=== PATIENT | male | born 1955 | race Caucasian/White ===

== ENCOUNTER 2019-05-28 11:17 | Emergency (ER) | payer MEDICARE ==
[2019-05-28 11:39] VITALS: BP 161/96
--- NOTE | 2019-05-28 12:09 | UC ---
Minor Trauma HPI - HPI Summary HPI Summary: patient slipped and fell on wet tile in the bathroom this morning---did not hit head landed on back ripped off left great toe nail, has lumbar sacral bone pain- -patient reports living alone with a dog- - History of Current Complaint Chief Complaint: MEENAkin Stated Complaint: FELL IN SHOWER, RIPPED TOENAIL OFF Time Seen by Provider: 05/28/19 11:58 Hx Obtained From: Patient Onset/Duration: Sudden Onset, Still Present - pain still present from fall this morning Onset Of Pain: Post Accident Pain Intensity: 5 Pain Scale Used: 0-10 Numeric Mechanism Of Injury: Fall From A Standing Position Aggravating Factor(s): Movement Alleviating Factor(s): Nothing Associated Signs And Symptoms: Positive: Other: - bleeding left great toe nail - Allergies/Home Medications Allergies/Adverse Reactions: Allergies Allergy/AdvReac Type Severity Reaction Status Date / Time No Known Allergies Allergy Verified 05/28/19 11:39 Home Medications: Home Medications Cbd Oil 1,500 mg PO BID 05/28/19 [History Confirmed 05/28/19] Formula 303 1 tab PO DAILY 05/28/19 [History Confirmed 05/28/19] Sertraline HCl [Zoloft] 100 mg PO 05/28/19 [History] PMH/Surg Hx/FS Hx/Imm Hx Previously Healthy: No - arthritis Psychological History: Depression - Surgical History Surgical History: Yes Surgery Procedure, Year, and Place: hernia repairs - Family History Known Family History: Positive: None - Social History Occupation: Disabled Lives: Alone Alcohol Use: None Substance Use Type: None Smoking Status (MU): Former Smoker When Did the Patient Quit Smoking/Using Tobacco: 20 yrs since cigs and 2 yrs since smokeless Review of Systems All Other Systems Reviewed And Are Negative: Yes Constitutional: Positive: Negative Skin: Positive: Other - bleeding left great nail bed Eyes: Positive: Negative ENT: Positive: Negative Respiratory: Positive: Negative Cardiovascular: Positive: Negative Gastrointestinal: Positive: Negative Genitourinary: Positive: Negative Motor: Positive: Other - chronic pain and limited rom Neurovascular: Positive: Negative Musculoskeletal: Positive: Arthralgia - lumbar sacral spine Neurological: Positive: Negative Psychological: Positive: Negative Is Patient Immunocompromised?: No Physical Exam Triage Information Reviewed: Yes Appearance: Well-Appearing, No Pain Distress, Well-Nourished Vital Signs: Initial Vital Signs Temp 99.5 F 05/28/19 11:30 Pulse 108 05/28/19 11:30 Resp 20 05/28/19 11:30 BP 161/96 05/28/19 11:30 Pulse Ox 98 05/28/19 11:30 Vital Signs Reviewed: Yes Eye Exam: Normal Eyes: Positive: Conjunctiva Clear ENT Exam: Normal ENT: Positive: Normal ENT inspection, Hearing grossly normal. Negative: Trismus , Muffled voice, Hoarse voice Dental Exam: Normal Neck exam: Normal Neck: Positive: Supple, Nontender, No Lymphadenopathy Respiratory Exam: Normal Respiratory: Positive: Chest non-tender, Lungs clear, Normal breath sounds, No respiratory distress, No accessory muscle use Cardiovascular Exam: Normal Cardiovascular: Positive: RRR, No Murmur, Pulses Normal, Brisk Capillary Refill Musculoskeletal Exam: Normal Musculoskeletal: Positive: Strength Intact, ROM Intact, No Edema Neurological Exam: Normal Neurological: Positive: Alert, Muscle Tone Normal Psychological Exam: Normal Skin: Positive: Other - minor oozing left great nail bed Diagnostics - Radiology No standard instances Radiology Interpretation Completed By: Radiologist - no acute lumbar changes, gas and stool in large intestine Minor Trauma Course/Dx - Course Course Of Treatment: patient prefers aleeve for pain, gentle rom for back---dressing on great toe wash and change qd and prn---follow with Dr. Ashley in 1 week - Differential Dx/Diagnosis Provider Diagnosis: Nail avulsion of toe, Back pain due to injury, Hypertension, Deficient knowledge of fall prevention Discharge ED - Sign-Out/Discharge Documenting (check all that apply): Patient Departure All imaging exams completed and their final reports reviewed: No Studies - Discharge Plan Condition: Stable Disposition: HOME Patient Education Materials: Constipation (DC), Fall Prevention for Older Adults (ED), Acute Low Back Pain (ED), Hypertension (ED), Nail Avulsion (ED) Referrals: Usman Estrada MD [Primary Care Provider] - 1 Week - Billing Disposition and Condition Condition: STABLE Disposition: Home - Attestation Statements Provider Attestation: I was available for consult. This patient was seen by the BRIAN. The patient was not presented to, seen by, or examined by me. -Orestes
== END 2019-05-28 14:01 | disposition home or self-care (01) ==
LOC: UCEAST 11:17
DX: S91.202A Unspecified open wound of left great toe with damage to nail, initial encounter (principal); F32.9 Major depressive disorder, single episode, unspecified; M54.9 Dorsalgia, unspecified; I10 Essential (primary) hypertension; Z79.899 Other long term (current) drug therapy; Z87.891 Personal history of nicotine dependence; W01.0XXA Fall on same level from slipping, tripping and stumbling without subsequent striking against object, initial encounter; Y92.002 Bathroom of unspecified non-institutional (private) residence as the place of occurrence of the external cause
CPT/HCPCS: 72110; 99212; G0463

== ENCOUNTER 2019-06-20 07:41 | Emergency (ER) | payer MEDICARE ==
--- NOTE | 2019-06-20 07:49 | ED ---
Complex/Multi-Sys Presentation - HPI Summary HPI Summary: Patient is a 63 y/o M presenting to the ED for a chief complaint of left hip pain after a fall at 03:00 on 06/20/19. Patient describes that he was reaching over the couch in his house when he tripped and fell from a standing position. Per EMS, patient was lying on the floor for 4 hours before the patient was able to call emergency services. Patient previously complained of left hip pain, and now also complains of left knee pain and lower back pain. He admits back pain from a previous fall one month ago in his bathroom, but reports the back pain on 06/20/19 has worsened from his baseline. He rates his back and knee pain as a 6/10 in severity. He had a scan of his back, but does not yet know the results. Patient also states he has had bilateral LE edema and ecchymosis of the lower back from a previous fall. He also notes urinary burning and difficulty voiding after a ureterscopy. Patient denies a loss of consciousness after the fall. He uses a cane to ambulate at home. PMHx is not significant for DM, HTN, or hypercholesterolemia. Patient is a former smoker and denies alcohol or drug use. Patient denies taking blood thinners, but he does take Sertraline and CBD oil. Allergies noted. Medications reviewed. Patient lives alone. - History Of Current Complaint Hx Obtained From: Patient, EMS Onset/Duration: Sudden Onset, Lasting Hours - 4 hours ago, Still Present Timing: Constant Severity Currently: Moderate Severity Initially: Moderate Location: Pain At: - Left hip, left knee, and lower back Associated Signs And Symptoms: Positive: Edema - Bilateral LE, Back Pain - Lower , Recent Trauma - Fall. Negative: Anticoagulation Therapy - Allergies/Home Medications Allergies/Adverse Reactions: Allergies Allergy/AdvReac Type Severity Reaction Status Date / Time No Known Allergies Allergy Verified 05/28/19 11:39 Home Medications: Home Medications Cannabidiol (CBD) Extract (NF) [Epidiolex (NF)] 1,500 mg PO BID 06/20/19 [ History Confirmed 06/20/19] Green Pain Salve 1 applic TOPICAL .1-2 TIMES DAILY PRN 06/20/19 [History Confirmed 06/20/19] Naproxen Sodium [Aleve] 220 mg PO DAILY PRN 06/20/19 [History Confirmed 06/20/19 ] PMH/Surg Hx/FS Hx/Imm Hx Previously Healthy: Yes Endocrine/Hematology History: Denies: Hx Diabetes Cardiovascular History: Denies: Hx Hypercholesterolemia, Hx Hypertension GI History: Reports: Hx Ulcer - duodenal Sensory History: Denies: Hx Legally Blind, Hx Deafness Opthamlomology History: Denies: Hx Legally Blind EENT History: Denies: Hx Deafness - Surgical History Surgical History: Yes Surgery Procedure, Year, and Place: hernia repairs Infectious Disease History: No Infectious Disease History: Denies: Hx Clostridium Difficile, Hx Hepatitis, Hx Human Immunodeficiency Virus (HIV), Hx of Known/Suspected MRSA, Hx Shingles, Hx Tuberculosis, Hx Known/ Suspected VRE, Hx Known/Suspected VRSA, History Other Infectious Disease - Family History Known Family History: Negative: Hypertension - Social History Occupation: Retired Lives: Alone Alcohol Use: None Hx Substance Use: No Substance Use Type: Reports: None Hx Tobacco Use: Yes Smoking Status (MU): Former Smoker Review of Systems Positive: burning - Urinary, other - Positive difficulty voiding Positive: Arthralgia - Left hip and left knee, Myalgia - Lower back, Edema - Bilateral LE Positive: Bruising - Lower back Negative: Syncope - LOC All Other Systems Reviewed And Are Negative: Yes Physical Exam - Summary Physical Exam Summary: Constitutional: Well-developed, Well-nourished, Alert. (-) Distressed Skin: Warm, Dry HENT: Normocephalic; Atraumatic Eyes: Conjunctiva normal Neck: Musculoskeletal ROM normal neck. (-) JVD, (-) Stridor, (-) Tracheal deviation Cardio: Rhythm regular, rate normal, Heart sounds normal; Intact distal pulses; Radial pulses are 2+ and symmetric. (-) Murmur Pulmonary/Chest wall: Effort normal. (-) Respiratory distress, (-) Wheezes, (-) Rales Abd: Soft, (-) tenderness, (-) Distension, (-) Guarding, (-) Rebound Musculoskeletal: bilateral LE pitting edema, worse on left than right, old ecchymosis to the left lower back, no bony tenderness, full ROM in the lower extremities. Lymph: (-) Cervical adenopathy Neuro: Alert, Oriented x3 Psych: Mood and affect Normal Triage Information Reviewed: Yes Vital Signs Reviewed: Yes Procedures - Sedation Patient Received Moderate/Deep Sedation with Procedure: No Diagnostics - Laboratory Result Diagrams: 06/20/19 08:02 06/20/19 08:02 Lab Statement: Any lab studies that have been ordered have been reviewed, and results considered in the medical decision making process. - Ultrasound Venous Doppler Study Ultrasound Interpretation Completed By: Radiologist Summary of Ultrasound Findings: Venous Doppler Study IMPRESSION: NO EVIDENCE FOR DEEP VENOUS THROMBOSIS. Reviewed by Dr. Walter. Re-Evaluation - Re-Evaluation First Eval Re-Evaluation Time: 10:00 Change: Unchanged Comment: At 10:00, patient is ambulating with a walker and has a shuffling gait. Second Eval Re-Evaluation Time: 10:18 Change: Unchanged Comment: At 10:18, patient is comfortable going home. He will have his ex- and son help him get a walker today. Complex Multi-Symp Course/Dx Course Of Treatment: Patient is here after mechanical fall. Patient has no traumatic injuries. Patient's presentation is consistent with undiagnosed Parkinson's disease. Patient had blood performed which is grossly unremarkable. Neurology was called and will follow-up with him in clinic [facility]. Patient's friend picked him up to take him to get a walker for safe ambulatory discharge - Diagnoses Provider Diagnoses: Shuffling gait, Peripheral edema, Fall Discharge ED - Sign-Out/Discharge Documenting (check all that apply): Patient Departure - Discharge - Discharge Plan Condition: Stable Disposition: HOME Patient Education Materials: Edema (ED) Referrals: Usman Estrada MD [Primary Care Provider] - Zachary Jacobo MD [Medical Doctor] - Additional Instructions: Buy a walker when you get home. Dr. Jacobo is expecting your call for an urgent appointment. PLEASE RETURN TO EMERGENCY DEPARTMENT FOR ANY RECURRENT FALLS, IF YOU DO NOT FEEL SAFE AT HOME, AND NEW OR WORSENING SYMPTOMS. Please follow up with your primary care physician. Please make all follow-ups in 1-3 days unless I advise you otherwise. - Billing Disposition and Condition Condition: STABLE Disposition: Home - Attestation Statements Document Initiated by Scribe: Yes Documenting Scribe: Rhonda Rey Provider For Whom Roberibe is Documenting (Include Credential): Ted Walter MD Scribe Attestation: I, Rhonda Rey, scribed for Ted Walter MD on 06/20/19 at 1859. Scribe Documentation Reviewed: Yes Provider Attestation: The documentation as recorded by the scribe, Rhonda Rey accurately reflects the service I personally performed and the decisions made by me, Ted Walter MD Status of Scribe Document: Viewed
[2019-06-20 08:21] LABS: ABS Basophils 0.1 10^3/ul (0-0.2); ABS Eosinophils 0.1 10^3/ul (0-0.6); ABS Lymphocytes 1.4 10^3/ul (1.0-4.8); ABS Monocytes 0.5 10^3/ul (0-0.8); ABS Neutrophils 3.5 10^3/ul (1.5-7.7); Eosinophil % 1.1 %; Hematocrit 42 % (42-52); Hemoglobin 14.3 g/dL (14.0-18.0); Lymphocyte % 24.7 %; Mean Corpuscular HGB Conc 34 g/dL (31-36); Mean Corpuscular Hemoglobin 29 pg (27-31); Mean Corpuscular Volume 84 fL (80-94); Nucleated Red Blood Cells % 0.1; Platelet Count 158 10^3/uL (150-450); Red Blood Count 4.97 10^6 /uL (4.18-5.48); Red Cell Distribution Width 15 % (10-15); White Blood Count 5.5 10^3/uL (3.5-10.8)
[2019-06-20 08:31] LABS: Albumin 3.9 g/dL (3.2-5.2); Albumin/Globulin Ratio 1.3 (1-3); BUN/Creatinine Ratio 31.8 (8-20); EGFR African American 83.9 (>60); EGFR Non-African American 69.4 (>60); Globulin 3.1 g/dL (2-4); Potassium 3.7 mmol/L (3.5-5.0); Total Bilirubin 1.1 mg/dL (0.2-1.0)
[2019-06-20 08:33] LABS: Troponin I 0.01 ng/mL (<0.03)
[2019-06-20 08:55] LABS: Urine Appearance Cloudy; Urine Bilirubin Negative (Negative); Urine Blood 1+ (Negative); Urine Color Yellow; Urine Glucose Negative (Negative); Urine Ketones 1+ (Negative); Urine Nitrite Negative (Negative); Urine Protein Negative (Negative); Urine Urobilinogen Negative (Negative)
[2019-06-20 09:08] LABS: Urine Bacteria Absent (Absent); Urine Red Blood Cell 2+(6-10/hpf) (Absent); Urine White Blood Cell Trace(0-5/hpf) (Absent)
--- OUTSIDE RECORDS SUMMARY | 2019-06-20 10:07 | XMS REPORT | Summary of Care ---
:1955 Author Organization [facility] Address [address] [facility] [place]te [address] Care Team Providers Name Role Phone Usman Estrada Primary Care Provider Kristyn Carrington Corn Popper Unavailable Reason for Referral Refer to Department Only (Routine) Status Reason Specialty Diagnoses / Referred By Referred To Procedures Contact Contact Pending Review Second Opinion NEUROLOGY Diagnoses Activity motor retarded Tremor of both hands Trell Tolbert PA [address] [place] [address] Scheduling Instructions Referral with Dr. Jacobo MRI/CAT/PET Scan (Routine) Status Reason Specialty Diagnoses / Referred By Referred To Procedures Contact Contact Pending Review Diagnoses Activity motor retarded Tremor of both hands Trell Tolbert Procedures CT HEAD WITHOUT IV CONTRAST SURAJ Vega [address] [place] [address] Reason for Visit Reason Comments ER F/U slipped and fell in bathroom on 05/28 lower back pain has increased since fall, L foot big toe nail came off during fall needs to be checked for healing Encounter Details Date Type Department Care Team Description 06/03/2019 Office Visit [facility] Trell Tolbert, Nail avulsion of toe, initial encounter (Primary Dx); Florencia RUELAS Chronic bilateral low back pain without sciatica; [address] [facility] [address] [facility] Activity motor retarded; [place] [address] [place] [address] Tremor of both hands [phone] Allergies Active Allergy Reactions Severity Noted Date Comments Environmental Respiratory Reaction 10/22/2016 documented as of this encounter (statuses as of 06/03/2019) Medications Medication Sig Dispensed Refills Start Date End Date Status sertraline TAKE 1 TABLET BY 90 Tab 5 11/24/2018 Active (ZOLOFT) 100 MG MOUTH EVERY DAY Oral Tab Umey-Xprilxt-Vwep 0.5 Drops TWICE 0 Active yl Kal-Camph (CBD DAILY. KINGS EX) sublingual Naproxen Sodium Take 200 mg by 0 Active (ALEVE PO) mouth NEEDED. Aspirin-Acetamino Take by mouth. 0 06/03/2019 Discontinued phen-Caffeine (EXCEDRIN PO) documented as of this encounter (statuses as of 06/03/2019) Active Problems Problem Noted Date Prostate cancer 01/05/2019 Overview: Watch and wait [facility] last psa 8 Biopsy positive winter 2017 Essential hypertension 10/05/2017 History of tobacco use 09/11/2016 Overview: Quit 1990s Family history of abdominal aortic aneurysm 09/11/2016 Overview: Dad GERD (gastroesophageal reflux disease) 02/14/2015 BMI 33.0-33.9,adult 03/03/2012 Overview: This patient's BMI has been calculated and is above average, and BMI management plan is completed. Depression, major, in remission Overview: hypervigilance and depressed mood Seasonal allergies DDD (degenerative disc disease) documented as of this encounter (statuses as of 06/03/2019) Immunizations Name Administration Dates Next Due Hepatitis B Vaccine Adult 12/12/2010 Influenza (IM) Preservative Free 05/17/2018 Influenza (IM) W/Pres 02/26/2017, 04/17/2016 Influenza Vaccine 65 Yrs + 04/12/2019 Pneumococcal Conjugate(13 Valent) 04/12/2019 TDAP Vaccine 12/01/2011 documented as of this encounter Social History Tobacco Use Types Packs/Day Years Used Date Former Smoker Cigarettes 2.5 20 Quit: 09/30/1979 Smokeless Tobacco: Former User Quit: 09/29/2013 Alcohol Use Drinks/Week oz/Week Comments No Social Isolation Answer Date Recorded In a typical week, how many times do you More than three times a week 2018 talk on the phone with family, friends, or neighbors? How often do you get together with friends Once a week 01/05/2019 or relatives? How often do you attend confucianism or More than 4 times per year 01/05/2019 sabianism services? Do you belong to any clubs or Yes 01/05/2019 organizations such as confucianism groups, unions, fraternal or athletic groups, or school groups? How often do you attend meetings of the More than 4 times per year 01/05/2019 clubs or organizations you belong to? Are you now , , , 01/05/2019 , never or living with a partner? Physical Activity Answer Date Recorded On average, how many days per week do you engage in moderate to 2 days 2018 strenuous exercise (like walking fast, running, jogging, dancing, swimming, biking, or other activities that cause a light or heavy sweat)? On average, how many minutes do you engage in exercise at this 30 min 2018 level? Stress Answer Date Recorded Do you feel stress - tense, restless, nervous, or Only a little 01/05/2019 anxious, or unable to sleep at night because your mind is troubled all the time - these days? Financial Resource Strain Answer Date Recorded How hard is it for you to pay for the very basics like Not hard at all 2018 food, housing, medical care, and heating? Intimate Partner Violence Answer Date Recorded Within the last year, have you been afraid of your partner or No 01/05/2019 ex-partner? Within the last year, have you been humiliated or emotionally No 01/05/2019 abused in other ways by your partner or ex-partner? Within the last year, have you been kicked, hit, slapped, or No 01/05/2019 otherwise physically hurt by your partner or ex-partner? Within the last year, have you been raped or forced to have any No 01/05/2019 kind of sexual activity by your partner or ex-partner? Food Insecurity Answer Date Recorded Within the past 12 months, you worried that your food would Never true 2018 run out before you got money to buy more. Within the past 12 months, the food you bought just didn't Never true 2018 last and you didn't have money to get more. Transportation Needs Answer Date Recorded In the past 12 months, has lack of transportation kept you from No 01/05/2019 medical appointments or from getting medications? In the past 12 months, has lack of transportation kept you from No 01/05/2019 meetings, work, or getting things needed for daily living? Sex Assigned at Date Recorded Not on file Job Start Date Occupation Industry Not on file Not on file Not on file Travel History Travel Start Travel End No recent travel history available. documented as of this encounter Last Filed Vital Signs Vital Sign Reading Time Taken Comments Blood Pressure 156/84 06/03/2019 10:06 AM EST Pulse 67 06/03/2019 10:06 AM EST Temperature 36.4 06/03/2019 10:06 AM EST C (97.5 F) Respiratory Rate - - Oxygen Saturation 99% 06/03/2019 10:06 AM EST Inhaled Oxygen Concentration - - Weight 96.6 kg (213 lb) 06/03/2019 10:06 AM EST Height 170.2 cm (5' 7") 06/03/2019 10:06 AM EST Body Mass Index 33.36 06/03/2019 10:06 AM EST documented in this encounter Progress Notes Trell Tolbert, SURAJ - 06/03/2019 10:00 AM EST PATIENT: Juvencio Lee : 1955 DATE OF SERVICE: 06/03/2019 Subjective SUBJECTIVE: Juvencio Lee is a 63-y.o. male who presents to monitor his left great toe after losing the nail in a fall in the shower. Seen in urgent care. SUBJECTIVE: Juvencio Lee is a 63-y.o. male who sustained a left toe injury after falling in the shower, losing a toenail on his great toe 1 week(s) ago. Immediate symptoms: immediate pain. Symptoms have been gradually improving since that time. Prior history of related problems: no prior problems with this area in the past, previous low back problems that have worsened since the fall.. [facility] took an X-Ray of his back on 05/28/2019 without any acute findings. He was advised to take Aleve for the pain and to see us here for follow up. Today, I noticed that the patient had severe motor and speech retardation. When questioning the patient whether this was his normal, he stated that this slowness has existed for the last year and occurred suddenly upon waking up, but has not discussed this with any providers. His neighbors suggested that he may have had a stroke or TIA based on his behavior, but he did not feel it was important to beevaluated at that time. He complains of slowed thought content, left sided weakness, slow speech without difficulty pronouncing things. It has severely impacted his activities of daily living such as putting on a jacket, getting into cars, putting on shoes, sitting in standing, making phone calls, andconversing. He denies recent injury, loss of consciousness, changes in vision or hearing, slurred speech. Past Medical History: Diagnosis Date Carpal tunnel syndrome BILAT DDD (degenerative disc disease) Mood disorder (HCC) hypervigilance and depressed mood Seasonal allergies Skin abnormalities Skin cancer Squamous cell carcinoma Family History Problem Relation Age of Onset Heart Mother Aneurysm Father Prostate Cancer Father Anesth Problems No family history Arthritis No family history Cancer No family history Clotting Disorder No family history Diabetes No family history Heart Disease No family history Hypertension No family history Kidney Disease No family history Thyroid Disease No family history Current Outpatient Medications Medication Sig Ieep-Djuaret-Zzsfli Kal-Camph (CBD KINGS EX) 0.5 Drops TWICE DAILY. sublingual Naproxen Sodium (ALEVE PO) Take 200 mg by mouth NEEDED. sertraline (ZOLOFT) 100 MG Oral Tab TAKE 1 TABLET BY MOUTH EVERY DAY No current facility-administered medications for this visit. Allergies Allergen Reactions Environmental Respiratory Reaction Social History Socioeconomic History Marital status: Spouse name: Not on file Number of children: Not on file Years of education: Not on file Highest education level: Not on file Occupational History Not on file Social Needs Financial resource strain: Not hard at all Food insecurity Worry: Never true Inability: Never true Transportation needs Medical: No Non-medical: No Tobacco Use Smoking status: Former Smoker Packs/day: 2.50 Years: 20.00 Pack years: 50.00 Types: Cigarettes Last attempt to quit: 09/30/1979 Years since quittin.7 Smokeless tobacco: Former User Quit date: 09/29/2013 Substance and Sexual Activity Alcohol use: No Drug use: No Sexual activity: Not on file Lifestyle Physical activity Days per week: 2 days Minutes per session: 30 min Stress: Only a little Relationships Social connections Talks on phone: More than three times a week Gets together: Once a week Attends sabianism service: More than 4 times per year Active member of club or organization: Yes Attends meetings of clubs or organizations: More than 4 times per year Relationship status: Intimate partner violence Fear of current or ex partner: No Emotionally abused: No Physically abused: No Forced sexual activity: No Other Topics Concern Not on file Social History Narrative lives alone; former smoker, still chews tobacco; x2; "I'm back to jainism again," but does not go to confucianism; disabled adult son; has 1 dog at home, but limited social support Review of Systems Constitutional: Negative for chills, fever and malaise/fatigue. HENT: Negative for hearing loss and tinnitus. Eyes: Negative for blurred vision and double vision. Respiratory: Negative for cough, sputum production and shortness of breath. Cardiovascular: Negative for chest pain, palpitations and leg swelling. Gastrointestinal: Negative for diarrhea, heartburn, nausea and vomiting. Musculoskeletal: Positive for back pain and falls. Skin: Negative for itching and rash. Neurological: Positive for tremors, speech change (Slowed speech) and weakness ( Left sided weakness). Negative for dizziness, sensory change, seizures, loss of consciousness and headaches. Psychiatric/Behavioral: Negative for hallucinations, memory loss, substance abuse and suicidal ideas. Objective OBJECTIVE: BP (!) 156/84 (BP Location: Right arm, Patient Position: Sitting) | Pulse 67 | Temp 97.5 F (36.4 C) (Tympanic) | Ht 5' 7" (1.702 m) | Wt 213 lb ( 96.6 kg) | SpO2 99% | BMI 33.36 kg/m Physical Exam Constitutional: General: He is not in acute distress. Comments: Patient won't make eye contact. He is alert and oriented but is slow-moving and speaking. HENT: Head: Normocephalic and atraumatic. Eyes: Pupils: Pupils are equal, round, and reactive to light. Cardiovascular: Rate and Rhythm: Normal rate and regular rhythm. Heart sounds: No murmur. No friction rub. No gallop. Pulmonary: Effort: No respiratory distress. Breath sounds: No wheezing, rhonchi or rales. Musculoskeletal: General: No swelling or deformity. Right lower leg: No edema. Left lower leg: No edema. Feet: Comments: Left big toenail fully avulsed. Without signs of erythema or infection; healing well. Skin: General: Skin is warm and dry. Neurological: Mental Status: He is oriented to person, place, and time. GCS: GCS eye subscore is 4. GCS verbal subscore is 5. GCS motor subscore is 6. Cranial Nerves: Cranial nerves are intact. No facial asymmetry. Sensory: Sensation is intact. Motor: Weakness (Full left sided weakness in all myotomes, 3/5 strength. 5/5 strength right myotomees throughout.) and tremor (Bilateral hand tremor noted.) present. No atrophy or seizure activity. Coordination: Coordination abnormal. Bbrgnf-Lptl-Rhxkpt Test abnormal and Heel to Prince Test abnormal. Gait: Gait abnormal. Deep Tendon Reflexes: Reflexes are normal and symmetric. Reflex Scores: Tricep reflexes are 2+ on the right side and 2+ on the left side. Bicep reflexes are 2+ on the right side and 2+ on the left side. Brachioradialis reflexes are 2+ on the right side and 2+ on the left side. Patellar reflexes are 2+ on the right side and 2+ on the left side. Achilles reflexes are 2+ on the right side. ASSESSMENT: ICD-9-CM ICD-10-CM 1. Nail avulsion of toe, initial encounter 893.0 S91.209A 2. Chronic bilateral low back pain without sciatica 724.2 M54.5 338.29 G89.29 3. Activity motor retarded 781.[address] HEAD WITHOUT IV CONTRAST REFER TO NEUROLOGY CANCELED: REFER TO NEUROLOGY 4. Tremor of both hands 781.[address] HEAD WITHOUT IV CONTRAST REFER TO NEUROLOGY CANCELED: REFER TO NEUROLOGY PLAN: 1. Nail is healing well. Continue to put neosporin on the toe and cover it with a bandaid. Wash yourfeet with soap and water, change socks daily. 2. His motor activity is highly concerning for a stroke that he may have had 1 year ago. I have ordered a head CT without contrast and referred him to neurology. - He also had high blood pressure today, and I would like him to follow up with this. I will call him to have him schedule a follow up appointment in a month. Author: SURAJ Aguilera 06/03/2019 11:01 documented in this encounter Plan of Treatment Name Type Priority Associated Diagnoses Order Schedule CT HEAD WITHOUT IV Imaging Routine Activity motor retarded Expected: 06/03/2019, CONTRAST Tremor of both hands Expires: 06/02/2020 Name Type Priority Associated Diagnoses Order Schedule REFER TO NEUROLOGY Referral Routine Activity motor retarded Expected: 06/03/2019, Tremor of both hands Expires: 06/03/2020 Health Maintenance Due Date Last Done Comments MEDICARE ANNUAL WELLNESS 1955 VISIT ZOSTER IMMUNIZATION SERIES 11/05/2003 (1 of 2) FALL RISK ASSESSMENT 2018 DIABETES SCREENING 01/06/2020 01/05/2019, 11/26/2018, 08/05/2018, Additional history exists LIPID DISORDER SCREENING 01/06/2020 01/05/2019, 11/26/2018, 10/05/2017, Additional history exists PNEUMOCOCCAL 65+YRS (2 of 2 04/12/2020 04/12/2019 - PPSV23) DEPRESSION SCREENING 05/17/2020 05/17/2019, 05/17/2019 Colonoscopy 09/30/2020 09/30/2017, 09/29/2017, 09/28/2014, Additional history exists DTaP/Tdap/Td Vaccines (2 - 11/30/2021 12/01/2011 Tdap) HEPATITIS C SCREENING Completed 12/12/2010 AAA SCREENING/SURVEILLANCE Completed 04/12/2019, 09/16/2016 INFLUENZA VACCINE Completed 04/12/2019, 05/17/2018, 02/26/2017, Additional history exists HEPATITIS A IMMUNIZATION Aged Out No longer eligible SERIES based on patient's age to complete this topic HPV IMMUNIZATION SERIES Aged Out No longer eligible based on patient's age to complete this topic MENINGOCOCCAL VACCINE IMM Aged Out No longer eligible based on patient's age to complete this topic documented as of this encounter Goals Goal Patient Goal Associated Recent Patient-Stated? Author Type Problems Progress Blood Pressure Blood Pressure 156/84 No [place], < 150/90 (06/03/2019 Usman Steward, 10:06 AM EST) Note: This is an individualized treatment (blood pressure) goal for Juvencio Lee: Displayed above (on the left) is your goal for blood pressure control. Your most recent blood pressure is also shown above, on the right. You should try to achieve blood pressures that are lower than your goal listed above (on the left). Depression screen Depression 2 (05/17/2019 9:32 AM Usman Weston, (PHQ-9) total score < 5 EST) Note: This is an individualized treatment (depression) goal for Juvencio Lee: Displayed above is your goal for a depression screening (PHQ-9) score that would indicate good control of your depression. Keep a regular sleep schedule Lifestyle Usman Weston MD Note: This is an individualized lifestyle goal for Juvencio Lee: Please maintain a regular sleep schedule. This may help with some symptoms of depression. Weight loss vs. 18 mo Lifestyle 12 (06/03/2019 10:06 AM Usman Weston MD max (lbs) >= 10 EST) Note: This is an individualized lifestyle goal for Juvencio Lee: Your body mass index (BMI) is more than 30. You should lose weight. A reasonable starting goal is to lose 10 pounds. Displayed above is how many pounds you have lost thus far towards your 10 pound weight loss goal. Take all prescribed medications as Self-management Usman Weston MD directed Note: This is an individualized self-management goal for Juvencio Lee: Please take all prescribed medications as directed. 1. Do not skip doses. If you cannot afford your medications, talk with your doctor. 2. Use a pill reminder system such as a pill box if needed. Your pharmacist can help you with this. 3. Contact your Pharmacy 5 days before your medication runs out. If you cannot take your medications for any reasons, talk with your doctor. 4. Please bring all of your medication bottles and inhalers (or a list of all your medications/inhalers) with you to every visit. Potential barriers to meeting all of your care plan goals will continue to be addressed on an ongoing basis. documented as of this encounter Results Not on filedocumented in this encounter Visit Diagnoses Diagnosis Nail avulsion of toe, initial encounter Chronic bilateral low back pain without sciatica Activity motor retarded Abnormal involuntary movements Tremor of both hands documented in this encounter Insurance Payer Benefit Plan / Subscriber ID Effective Dates Phone Address Type Group WELLCARE WELLCARE xxxxxxxx 2018-Prese Medicare TODAYS OPTIONS TODAYS OPTIONS nt [employer] (Home) [place], [place] [phone] [id number] (Work) documented as of this encounter Advance Directives Type Date Recorded Patient Order Picker Explanation Advance Directives 10/03/2014 3:07 PM Health Care Proxy
[2019-06-20 10:15] VITALS: BP 127/95
== END 2019-06-20 11:33 | disposition home or self-care (01) ==
LOC: ED 07:41
DX: R26.89 Other abnormalities of gait and mobility (principal); R60.0 Localized edema; W01.0XXA Fall on same level from slipping, tripping and stumbling without subsequent striking against object, initial encounter; Y92.009 Unspecified place in unspecified non-institutional (private) residence as the place of occurrence of the external cause; Z87.891 Personal history of nicotine dependence; Z79.899 Other long term (current) drug therapy
CPT/HCPCS: 36415; 80053; 81003; 81015; 82550; 83880; 84484; 85025; 87086; 93970; 99283

== ENCOUNTER 2024-04-14 04:49 | Inpatient (IN) ==
[2024-04-14 05:55] LABS: ABS Basophils 0.1 10^3/uL (0.0-0.1); ABS Eosinophils 0.1 10^3/uL (0.0-0.5); ABS Lymphocytes 1.2 10^3/uL (1.0-4.8); ABS Monocytes 0.7 10^3/uL (0.0-1.1); ABS Neutrophils 5.7 10^3/uL (1.5-7.6); ABS Nucleated RBC 0.01 10^3/ul; Eosinophil % 0.7 %; Hematocrit 39.1 % (38-53); Hemoglobin 13.1 g/dL (13.2-16.3); Lymphocyte % 15.6 %; Mean Corpuscular Hemoglobin 28.7 pg (27-33); Mean Corpuscular Hgb Conc 33.5 g/dL (31-36); Mean Corpuscular Volume 85.5 fL (80-97); Mean Platelet Volume 9.6 fL (7.5-11.2); Nucleated Red Blood Cells % 0.1 %/100WBC (0.0-0.8); Platelet Count 166 10^3/uL (150-450); Red Blood Count 4.57 10^6/uL (4.06-5.63); Red Cell Distribution Width 15.2 % (12-17); White Blood Count 7.8 10^3/uL (3.6-10.2)
[2024-04-14 06:08] LABS: INR 1.18 (0.85-1.14)
[2024-04-14 06:21] LABS: High Sens Troponin Baseline 3 pg/mL (<20)
[2024-04-14 06:32] LABS: ALT 5 U/L (7-52); AST 17 U/L (13-39); Albumin 3.6 g/dL (3.2-5.2); Albumin/Globulin Ratio 1.3 (1-3); Alkaline Phosphatase 76 U/L (35-149); Anion Gap 7 mmol/L (2-16); Blood Urea Nitrogen 26 mg/dL (6-24); C Reactive Protein 6.88 mg/L (<8.01); CO2 Carbon Dioxide 31 mmol/L (22-32); Calcium 11.3 mg/dL (8.6-10.3); Chloride 101 mmol/L (101-111); Creatinine, Serum 0.86 mg/dL (0.67-1.17); Globulin 2.8 g/dL (2-4); Glucose 112 mg/dL (70-100); Lipase < 10 U/L (11.0-82.0); Potassium 4.1 mmol/L (3.5-5.0); Sodium 139 mmol/L (135-145); Total Protein 6.4 g/dL (6.4-8.9); eGFR CKD-EPI 93.1 (>60)
[2024-04-14 07:33] LABS: High Sensitivity Troponin 1 Hr 3 pg/mL (<20)
[2024-04-14] MEDS: Iohexol 300 (CONTRAST) 10 ML SDV IV ONE (07:55)
[2024-04-14] MEDS: cefTRIAXone 1 gm/50 mL D5W 1 GM/50 ML BAG IV ONE (09:52)
[2024-04-14 10:12] LABS: Urine Appearance Clear; Urine Bilirubin Negative (Negative); Urine Blood Negative (Negative); Urine Color Yellow; Urine Glucose Negative (Negative); Urine Ketones 1+ (Negative); Urine Nitrite Negative (Negative); Urine Protein Negative (Negative); Urine Specific Gravity >1.050 (1.002-1.030); Urine Urobilinogen Negative (Negative)
[2024-04-14] MEDS: Mineral Oil ENEMA 118 ML/BOTTLE BOTTLE PR ONE (14:56)
[2024-04-14] MEDS: Carbidopa/Levodop 25/100 MG TAB PO SCH (15:19)
[2024-04-14] MEDS: Senna TAB 8.6 mg TAB PO SCH (21:26)
[2024-04-14] MEDS: Enoxaparin 40 MG/0.4 ML SYR SUBCUT SCH (21:26)
[2024-04-14] MEDS: PEG 3000 GI LAVAGE 1 GALLON PO ONE (21:26)
[2024-04-14] MEDS: ceFAZolin 2 GM PREMIX 2 GM/50 ML BAG IV SCH (22:13)
[2024-04-15 06:05] LABS: ABS Basophils 0.1 10^3/uL (0.0-0.1); ABS Eosinophils 0.1 10^3/uL (0.0-0.5); ABS Lymphocytes 1.6 10^3/uL (1.0-4.8); ABS Monocytes 1.3 10^3/uL (0.0-1.1); ABS Neutrophils 6.2 10^3/uL (1.5-7.6); ABS Nucleated RBC 0.02 10^3/ul; Eosinophil % 0.6 %; Hematocrit 38.9 % (38-53); Lymphocyte % 17.2 %; Mean Corpuscular Hemoglobin 28.6 pg (27-33); Mean Corpuscular Hgb Conc 33.3 g/dL (31-36); Mean Corpuscular Volume 85.7 fL (80-97); Nucleated Red Blood Cells % 0.2 %/100WBC (0.0-0.8); Platelet Count 160 10^3/uL (150-450); Red Blood Count 4.54 10^6/uL (4.06-5.63); White Blood Count 9.2 10^3/uL (3.6-10.2)
[2024-04-15 06:29] LABS: Albumin 3.2 g/dL (3.2-5.2); Albumin/Globulin Ratio 1.2 (1-3); Calcium 10.8 mg/dL (8.6-10.3); Creatinine, Serum 0.85 mg/dL (0.67-1.17); Globulin 2.7 g/dL (2-4); Magnesium 1.7 mg/dL (1.9-2.7); Potassium 4.1 mmol/L (3.5-5.0); Total Bilirubin 1.2 mg/dL (0.2-1.0); Total Protein 5.9 g/dL (6.4-8.9); eGFR CKD-EPI 93.5 (>60)
[2024-04-15] MEDS: DULoxetine DR 30 mg CAP PO SCH (09:07)
[2024-04-15] MEDS: Magnesium Sulfate 2 gm BAG 2 GM/50 ML BAG IVPB ONE (09:08)
[2024-04-15] MEDS ORDERED: Polyethylene Glycol 3350 17 GM PACKET PO PRN (11:43)
[2024-04-15] MEDS: Lactulose 30 ml UDC PO SCH (13:25)
[2024-04-15] MEDS: Mineral Oil ENEMA 118 ML/BOTTLE BOTTLE PR ONE (13:25)
[2024-04-16 07:02] LABS: ABS Eosinophils 0.1 10^3/uL (0.0-0.5); ABS Lymphocytes 1.6 10^3/uL (1.0-4.8); ABS Neutrophils 3.7 10^3/uL (1.5-7.6); ABS Nucleated RBC 0.01 10^3/ul; Eosinophil % 2.1 %; Hematocrit 35.5 % (38-53); Hemoglobin 12.2 g/dL (13.2-16.3); Mean Corpuscular Hemoglobin 29.2 pg (27-33); Mean Corpuscular Hgb Conc 34.3 g/dL (31-36); Mean Corpuscular Volume 85.1 fL (80-97); Mean Platelet Volume 9.8 fL (7.5-11.2); Nucleated Red Blood Cells % 0.1 %/100WBC (0.0-0.8); Platelet Count 139 10^3/uL (150-450); Red Blood Count 4.17 10^6/uL (4.06-5.63); Red Cell Distribution Width 15.1 % (12-17); White Blood Count 6.5 10^3/uL (3.6-10.2)
[2024-04-16 07:20] LABS: Albumin 2.9 g/dL (3.2-5.2); Albumin/Globulin Ratio 1.2 (1-3); Calcium 10.1 mg/dL (8.6-10.3); Creatinine, Serum 0.85 mg/dL (0.67-1.17); Globulin 2.5 g/dL (2-4); Magnesium 1.8 mg/dL (1.9-2.7); Potassium 3.9 mmol/L (3.5-5.0); Total Bilirubin 0.7 mg/dL (0.2-1.0); Total Protein 5.4 g/dL (6.4-8.9); eGFR CKD-EPI 93.5 (>60)
[2024-04-16] MEDS: Polyethylene Glycol 3350 17 GM PACKET PO SCH (09:53)
[2024-04-16] MEDS: Senna TAB 8.6 mg TAB PO SCH (09:53)
[2024-04-17 07:15] LABS: ABS Basophils 0.1 10^3/uL (0.0-0.1); ABS Eosinophils 0.2 10^3/uL (0.0-0.5); ABS Lymphocytes 1.2 10^3/uL (1.0-4.8); ABS Monocytes 0.8 10^3/uL (0.0-1.1); ABS Neutrophils 3.6 10^3/uL (1.5-7.6); Eosinophil % 3.5 %; Hematocrit 37.9 % (38-53); Hemoglobin 12.9 g/dL (13.2-16.3); Lymphocyte % 20.7 %; Mean Corpuscular Hemoglobin 28.9 pg (27-33); Mean Platelet Volume 9.7 fL (7.5-11.2); Nucleated Red Blood Cells % 0.1 %/100WBC (0.0-0.8); Platelet Count 140 10^3/uL (150-450); Red Blood Count 4.46 10^6/uL (4.06-5.63)
[2024-04-17 07:24] LABS: Albumin/Globulin Ratio 1.2 (1-3); Calcium 10.5 mg/dL (8.6-10.3); Creatinine, Serum 0.75 mg/dL (0.67-1.17); Globulin 2.6 g/dL (2-4); Magnesium 1.8 mg/dL (1.9-2.7); Phosphorus 2.3 mg/dL (2.5-5.0); Potassium 3.9 mmol/L (3.5-5.0); Total Bilirubin 0.7 mg/dL (0.2-1.0); Total Protein 5.6 g/dL (6.4-8.9); eGFR CKD-EPI 97.1 (>60)
[2024-04-17] MEDS: Magnesium Sulfate 2 gm BAG 2 GM/50 ML BAG IVPB ONE (10:22)
[2024-04-17] MEDS: Mineral Oil ENEMA 118 ML/BOTTLE BOTTLE PR ONE (12:14)
[2024-04-17] MEDS: Influenza Vaccine *TRI* 2024-25* 0.5 ML SYRINGE IM ONE (18:03)
[2024-04-18 07:30] LABS: Calcium 10.1 mg/dL (8.6-10.3); Creatinine, Serum 0.83 mg/dL (0.67-1.17); Magnesium 1.9 mg/dL (1.9-2.7); Phosphorus 2.3 mg/dL (2.5-5.0); Potassium 3.8 mmol/L (3.5-5.0); eGFR CKD-EPI 94.2 (>60)
[2024-04-18] MEDS: Magnesium Sulfate 2 gm BAG 2 GM/50 ML BAG IVPB ONE (09:47)
[2024-04-18] MEDS: Pneumococcal 20-Valent Conj 0.5 ML SYR Vaccine IM ONE (09:58)
[2024-04-18] MEDS: COVID VAC 24-25 (12+) (Moderna) Syringe 0.5 mL IM ONE (11:22)
[2024-04-18] MEDS ORDERED: Potassium Acid Phos 500 mg TAB PO SCH (18:00)
[2024-04-18] MEDS: Potassium Phosphate IV 15 MMOL in NS 0.9% 250 ml 250 ML IVPB ONE (18:30)
[2024-04-19 06:16] LABS: Hematocrit 34.3 % (38-53); Hemoglobin 11.7 g/dL (13.2-16.3); Mean Corpuscular Hemoglobin 28.8 pg (27-33); Mean Corpuscular Hgb Conc 34.2 g/dL (31-36); Mean Corpuscular Volume 84.3 fL (80-97); Mean Platelet Volume 9.6 fL (7.5-11.2); Platelet Count 136 10^3/uL (150-450); Red Blood Count 4.07 10^6/uL (4.06-5.63); Red Cell Distribution Width 14.6 % (12-17); White Blood Count 6.3 10^3/uL (3.6-10.2)
[2024-04-19 06:32] LABS: Calcium 10.1 mg/dL (8.6-10.3); Creatinine, Serum 0.76 mg/dL (0.67-1.17); Magnesium 1.9 mg/dL (1.9-2.7); Phosphorus 2.6 mg/dL (2.5-5.0); eGFR CKD-EPI 96.7 (>60)
[2024-04-19 09:30] VITALS: BP 120/79
== END 2024-04-19 14:46 | DRG 603 ==
LOC: EDHOLD 04:49 → ED 04:49 → SUATTDRO 11:54 → MED 16:05 → SUATTDRO 04-17 13:29
PROVIDERS: ADMIT Internal Medicine; ATTEND Student in an Organized Health Care Education/Training Program

== ENCOUNTER 2024-06-30 12:43 | Inpatient (IN) ==
[2024-06-30 13:21] LABS: ABS Basophils 0.1 10^3/uL (0.0-0.1); ABS Eosinophils 0.1 10^3/uL (0.0-0.5); ABS Lymphocytes 1.8 10^3/uL (1.0-4.8); ABS Monocytes 0.6 10^3/uL (0.0-1.1); ABS Neutrophils 4.2 10^3/uL (1.5-7.6); Hematocrit 41.2 % (38-53); Hemoglobin 14.3 g/dL (13.2-16.3); Mean Corpuscular Hemoglobin 29.5 pg (27-33); Mean Corpuscular Hgb Conc 34.6 g/dL (31-36); Mean Corpuscular Volume 85.1 fL (80-97); Mean Platelet Volume 10.2 fL (7.5-11.2); Platelet Count 123 10^3/uL (150-450); Red Blood Count 4.84 10^6/uL (4.06-5.63); Red Cell Distribution Width 14.6 % (12-17); White Blood Count 6.8 10^3/uL (3.6-10.2)
[2024-06-30 13:58] LABS: Albumin 3.7 g/dL (3.5-5.7); Albumin/Globulin Ratio 1.3 (1-3); Calcium 11.2 mg/dL (8.6-10.3); Creatinine, Serum 0.76 mg/dL (0.67-1.17); Globulin 2.9 g/dL (2-4); Potassium 4.4 mmol/L (3.5-5.0); Total Protein 6.6 g/dL (6.4-8.9); eGFR CKD-EPI 96.7 (>60)
[2024-06-30 16:32] LABS: High Sensitivity Troponin 1 Hr 4 pg/mL (<20)
[2024-06-30 17:16] LABS: Urine Appearance Extra Turbid; Urine Bilirubin Negative (Negative); Urine Blood Negative (Negative); Urine Color Yellow; Urine Glucose Negative (Negative); Urine Ketones 1+ (Negative); Urine Nitrite Negative (Negative); Urine Protein Negative (Negative); Urine Specific Gravity 1.018 (1.002-1.030); Urine Urobilinogen Negative (Negative)
[2024-06-30] MEDS: Carbidopa/Levodop 25/100 MG TAB PO SCH (19:34)
[2024-06-30] MEDS: Enoxaparin 40 MG/0.4 ML SYR SUBCUT SCH (19:34)
[2024-06-30] MEDS ORDERED: Carbidopa/Levodop 25/100 MG TAB PO SCH (21:00)
[2024-07-01] MEDS: DULoxetine DR 30 mg CAP PO SCH (10:14)
[2024-07-03 17:51] LABS: ABS Basophils 0.1 10^3/uL (0.0-0.1); ABS Eosinophils 0.1 10^3/uL (0.0-0.5); ABS Lymphocytes 2.7 10^3/uL (1.0-4.8); ABS Neutrophils 3.8 10^3/uL (1.5-7.6); Eosinophil % 1.8 %; Hematocrit 42.2 % (38-53); Hemoglobin 14.3 g/dL (13.2-16.3); Lymphocyte % 34.4 %; Mean Corpuscular Hemoglobin 28.9 pg (27-33); Mean Corpuscular Hgb Conc 33.9 g/dL (31-36); Mean Corpuscular Volume 85.4 fL (80-97); Nucleated Red Blood Cells % 0.1 %/100WBC (0.0-0.8); Platelet Count 146 10^3/uL (150-450); Red Blood Count 4.95 10^6/uL (4.06-5.63); Red Cell Distribution Width 14.6 % (12-17); White Blood Count 7.7 10^3/uL (3.6-10.2)
[2024-07-04 06:40] LABS: Albumin 3.3 g/dL (3.5-5.7); Albumin/Globulin Ratio 1.3 (1-3); Calcium 11.1 mg/dL (8.6-10.3); Creatinine, Serum 0.89 mg/dL (0.67-1.17); Globulin 2.6 g/dL (2-4); Magnesium 1.8 mg/dL (1.9-2.7); Phosphorus 2.3 mg/dL (2.5-5.0); Potassium 4.2 mmol/L (3.5-5.0); Total Bilirubin 0.8 mg/dL (0.2-1.0); Total Protein 5.9 g/dL (6.4-8.9); eGFR CKD-EPI 92.2 (>60)
[2024-07-05 14:12] VITALS: BP 115/64
== END 2024-07-05 15:00 | DRG 57 ==
LOC: EDHOLD 12:43 → ED 12:43 → OBSVTOIN 16:33 → INTOOBSV 16:33 → SUATTDRO 16:33 → EDHOLD 18:45 → MED 19:53
PROVIDERS: ADMIT Internal Medicine; ATTEND Internal Medicine